=== PATIENT | male | born 1990 | race Hispanic/Latino ===

== ENCOUNTER 2017-04-24 18:45 | Emergency (ER) | payer SELFPAY ==
[2017-04-24 19:06] VITALS: BP 142/91; PULSE 71; RESP 16; TEMP 98.2; O2SAT 100
--- NOTE | 2017-04-24 19:23 | ED PDOC ---
HPI: Allergic Reaction Time Seen by Provider: 04/24/17 19:10 Chief Complaint (Nursing): Allergic Reaction Chief Complaint (Provider): Allergic reaction History Per: Patient History/Exam Limitations: no limitations Onset/Duration Of Symptoms: Mins Current Symptoms Are (Timing): Still Present Possible Cause: Unknown Associated Symptoms: Skin Rash, Itching, Redness Home/EMS Treatment: None Additional Complaint(s): The patient is a 26yo male, presents to the ED for evaluation of itchy rash all over his body, which started prior to arrival. Patient states he ate a slice of pizza earlier today at 11am and Aleve before arrival. Patient states he has taken Aleve before and has not had a reaction. He is unsure of any other allergies. patient denies any chest pain, shortness of breath and offers no additional medical complaints. Past Medical History Reviewed: Historical Data, Nursing Documentation, Vital Signs Vital Signs: Last Vital Signs Temp 98.2 F 04/24/17 19:03 Pulse 71 04/24/17 19:03 Resp 16 04/24/17 19:03 BP 142/91 H 04/24/17 19:03 Pulse Ox 100 04/24/17 19:03 - Medical History PMH: No Chronic Diseases - Surgical History Surgical History: No Surg Hx - Family History Family History: States: No Known Family Hx - Home Medications Home Medications: Ambulatory Orders Medication Instructions Recorded DiphenhydrAMINE [Benadryl] 50 mg PO Q6H PRN #20 cap 04/24/17 Famotidine [Pepcid] 20 mg PO DAILY #5 tab 04/24/17 predniSONE [predniSONE Tab] 20 mg PO DAILY #12 tab 04/24/17 - Allergies Allergies/Adverse Reactions: Allergies Allergy/AdvReac Type Severity Reaction Status Date / Time No Known Allergies Allergy Verified 04/24/17 19:10 Review of Systems Cardiovascular: Negative for: Chest Pain Respiratory: Negative for: Shortness of Breath Skin: Positive for: Rash Physical Exam - Reviewed Nursing Documentation Reviewed: Yes Vital Signs Reviewed: Yes - Physical Exam Appears: Positive for: Non-toxic, No Acute Distress Head Exam: Positive for: ATRAUMATIC, NORMAL INSPECTION, NORMOCEPHALIC Skin: Positive for: Rash (raised, erythematous, blanching, well defined rash of varied sizes, presents diffusely) Eye Exam: Positive for: Normal appearance ENT: Positive for: Normal ENT Inspection Neck: Positive for: Supple Cardiovascular/Chest: Positive for: Regular Rate, Rhythm Respiratory: Positive for: Normal Breath Sounds. Negative for: Respiratory Distress Back: Positive for: Normal Inspection Extremity: Positive for: Normal ROM Neurologic/Psych: Positive for: Alert, Oriented. Negative for: Motor/Sensory Deficits - ECG O2 Sat by Pulse Oximetry: 100 (RA) Pulse Ox Interpretation: Normal - Progress ED Course And Treament: Time: 1924 Impression: Allergic reaction Plan: -- Benadryl 50 mg PO -- Solumedrol 125 mg IM -- Pepcid 20 mg PO Reassess Scribe Attestation: Documented by Shae Clemons acting as a scribe for LEE Bennett Provider Attestation: All medical record entries made by the Scribe were at my direction and personally dictated by me. I have reviewed the chart and agree that the record accurately reflects my personal performance of the history, physical exam, medical decision making, and the department course for this patient. I have also personally directed, reviewed, and agree with the discharge instructions and disposition. Disposition - Clinical Impression Clinical Impression: Urticaria - Patient ED Disposition Is Patient to be Admitted: No Counseled Patient/Family Regarding: Need For Followup, Rx Given - Disposition Referrals: [facility] [Outside] Disposition: Routine/Home Disposition Time: 20:25 Condition: GOOD Prescriptions: DiphenhydrAMINE [Benadryl] 50 mg PO Q6H PRN #20 cap PRN Reason: Itching / Pruritus Famotidine [Pepcid] 20 mg PO DAILY #5 tab predniSONE [predniSONE Tab] 20 mg PO DAILY #12 tab Instructions: Urticaria (GEN) Forms: [employer]ix (Tamazight) Medical Decision Making Medical Decision Making: Improvement of rash after benadryl, solumedrol and pepcid. Pt denies SOB, or tingling/swelling in or around mouth.
== END 2017-04-24 20:36 | disposition home or self-care (01) ==
LOC: H.ER 18:45
DX: L50.9 Urticaria, unspecified (principal)
CPT/HCPCS: 96372; 99282; J2930